=== PATIENT | male | born 1995 | race Caucasian/White ===

== ENCOUNTER 2020-10-28 13:42 | Emergency (ER) | payer OTHER, SELFPAY ==
--- NOTE | ~2020-10-28 | XR_ITS ---
EXAMINATION: XR forearm RT 2V EXAM DATE: 10/28/2020 14:33 INDICATION: Initial encounter following injury, with pain of the right arm. Pulling injury 2 weeks ag o. Coarse TECHNIQUE: Right forearm frontal and lateral projections obtained and reviewed. There is no prior st udy for comparison. FINDINGS: There are no acute right forearm fractures or dislocations identified. There is no subcuta neous gas. The soft tissue is unremarkable. There are no radiopaque foreign bodies. IMPRESSION: Right forearm exam without acute osseous findings. Reviewed, dictated and finalized at location A.
[2020-10-28 14:15] VITALS: BP 133/79; PULSE 74; RESP 16; TEMP 36.7; O2SAT 96
--- NOTE | 2020-10-28 15:24 | ED.UPPEXIN ---
HPI - Extremity Injury (Upper) General Chief Complaint: Extremity Injury, Upper Stated Complaint: arm injury a couple weeks ago Time Seen by Provider: 10/28/20 14:43 Source: patient Mode of arrival: ambulatory Limitations: no limitations History of Present Illness HPI narrative: This is a 25-year-old male that presents to the emergency department for right forearm pain after an injury 2 weeks ago. Reports he hit his arm on a trailer hitch. Reports since he has had pain with palpation in the area and certain movements. Denies fever, erythema, edema, decreased range of motion, or numbness. Related Data Allergies Allergy/AdvReac Type Severity Reaction Status Date / Time No Known Allergies Allergy Unverified 11/04/14 19:37 Review of Systems Review of Systems: Narrative: CONSTITUTIONAL: Denies fever SKIN: Denies rash MUSCULOSKELETAL: Reports joint pain, and myalgia. NEUROLOGIC: Denies numbness, or weakness. All systems reviewed & are unremarkable except as noted in HPI and below PMFSH Past Medical History Medical History (Updated 10/28/20 @ 15:31 by Amairani Ellis PA-C) No active medical problems Social History Social History (Updated 10/28/20 @ 15:26 by Amairani Ellis PA-C) Substance use: never Exam Narrative: Exam Narrative: GENERAL: Well-appearing, well-nourished, and in no acute distress. HEAD: Normocephalic, atraumatic. EYES: EOMI. EXTREMITIES: Normal range of motion. No edema, erythema or obvious deformity. Normal DP pulses. Normal sensation. Normal die cutter strength SKIN: Warm, dry, no rash. NEURO: No focal deficits. Alert and oriented x3. PSYCH: Normal mood and affect Course Vital Signs Vital signs: Vital Signs Temperature 98.0 F 10/28/20 14:15 Pulse Rate 74 10/28/20 14:15 Respiratory Rate 16 10/28/20 14:15 Blood Pressure 133/79 10/28/20 14:15 Pulse Oximetry 96 10/28/20 14:15 Temperature 98.0 F 10/28/20 14:15 Pulse Rate 74 10/28/20 14:15 Respiratory Rate 16 10/28/20 14:15 Blood Pressure 133/79 10/28/20 14:15 Pulse Oximetry 96 10/28/20 14:15 MDM - Extremity Injury (Upper) MDM Narrative Medical decision making narrative: Patient presents to the emergency department for right forearm pain after an injury 2 weeks ago. Patient is neurovascularly intact. Right forearm x-rays without acute osseous abnormalities. Patient placed in Herson wrap and instructed to rest, ice and take [id number] pain medication as needed. He is to follow-up with primary care doctor. He was given warnings to return to the ER Imaging Data Radiologist's impression: ITS Impressions Forearm X-Ray 10/28/20 14:35 IMPRESSION: Right forearm exam without acute osseous findings. Critical Care Time Critical Care Time Critical Care Time: No Discharge Plan Discharge Clinical Impression: Contusion of forearm, right Qualifiers: Encounter type: initial encounter Qualified Code(s): S50.11XA - Contusion of right forearm, initial encounter Patient Disposition: Home, Self-Care Condition: Stable Instructions: Contusion in Adults (ED) Additional Instructions: Return to the emergency department if you experience fever, redness and swelling of your arm, numbness, or any other symptoms that are concerning to you Rest. Elevate. Ice the area. Tylenol or ibuprofen as needed for pain Follow-up with primary care doctor Follow-up/Referrals: Gadiel Rea MD [Physician] - 1 Week PHYSICIAN,SUPPLY SPECIALIST [Primary Care Provider] -
[2020-10-28 15:50] VITALS: BP 129/71; PULSE 71; RESP 16; O2SAT 98
== END 2020-10-28 15:51 | disposition home or self-care (01) ==
PROVIDERS: Emergency Provider Emergency Medicine
DX: S50.11XA Contusion of right forearm, initial encounter (principal); W22.8XXA Striking against or struck by other objects, initial encounter
CPT/HCPCS: 73090; 99283

== ENCOUNTER 2023-04-28 19:50 | Emergency (ER) | payer SELFPAY ==
[2023-04-28 20:23] VITALS: BP 143/111; PULSE 99; RESP 20; TEMP 36.8; O2SAT 99
--- NOTE | 2023-04-28 23:05 | PC.NURSE ---
No answer for Vital signs at 2300
== END 2023-04-29 00:51 | disposition left against medical advice (07) ==
LOC: ANHED 04-29 00:14
DX: M54.50 Low back pain, unspecified (principal)
CPT/HCPCS: 99199